=== PATIENT | female | born 1935 | race Caucasian/White ===

== ENCOUNTER → 2016-12-25 | Outpatient (CLI) | payer OTHER ==
[~2016-12-25] MED LIST: LEVOTHYROXINE 0.1 MG PO; LISINOPRIL5 MG PO; PREMARIN0.625 MG PO
[2016-12-25 12:51] VITALS: BP 112/74
== END ==
LOC: OPONC 08:08
DX: D80.1 Nonfamilial hypogammaglobulinemia (principal); D84.9 Immunodeficiency, unspecified
CPT/HCPCS: 95000; 95001

== ENCOUNTER → 2017-01-25 | Outpatient (CLI) | payer OTHER ==
[2017-01-25 14:36] VITALS: BP 133/55
== END ==
LOC: OPONC 07:57
DX: D80.1 Nonfamilial hypogammaglobulinemia (principal)
CPT/HCPCS: 95000; 95001

== ENCOUNTER → 2017-02-24 | Outpatient (CLI) | payer OTHER ==
[2017-02-24 10:44] VITALS: BP 133/44
== END ==
LOC: OPONC 02-22 13:44
DX: D80.1 Nonfamilial hypogammaglobulinemia (principal)
CPT/HCPCS: 95000; 95001

== ENCOUNTER → 2017-03-24 | Outpatient (CLI) | payer OTHER ==
[2017-03-24 15:53] VITALS: BP 140/80
== END ==
LOC: OPONC 03-23 00:59
DX: D80.1 Nonfamilial hypogammaglobulinemia (principal); D84.9 Immunodeficiency, unspecified
CPT/HCPCS: 95000; 95001

== ENCOUNTER → 2017-04-21 | Outpatient (CLI) | payer OTHER ==
[2017-04-21 10:00] VITALS: BP 155/54
== END ==
LOC: OPONC 04-20 06:49
DX: D80.1 Nonfamilial hypogammaglobulinemia (principal); D84.9 Immunodeficiency, unspecified
CPT/HCPCS: 95000; 95001

== ENCOUNTER → 2017-05-25 | Outpatient (CLI) | payer OTHER ==
[2017-05-25 17:12] VITALS: BP 154/56
== END ==
LOC: OPONC 06:28
DX: D84.9 Immunodeficiency, unspecified (principal); D80.1 Nonfamilial hypogammaglobulinemia
CPT/HCPCS: 95000; 95001

== ENCOUNTER → 2017-06-21 | Outpatient (CLI) | payer OTHER ==
[~2017-06-21] MED LIST changes: +PRIVIGEN50 ML IV
[2017-06-21 10:15] VITALS: BP 139/51
== END ==
LOC: OPONC 00:44
DX: D84.9 Immunodeficiency, unspecified (principal); D80.1 Nonfamilial hypogammaglobulinemia
CPT/HCPCS: 95000; 95001

== ENCOUNTER → 2017-07-19 | Outpatient (CLI) | payer OTHER ==
[2017-07-19 09:45] VITALS: BP 102/37
[2017-07-19 13:15] VITALS: BP 151/52
== END ==
LOC: OPONC 00:32
DX: D84.9 Immunodeficiency, unspecified (principal); D80.1 Nonfamilial hypogammaglobulinemia
CPT/HCPCS: 95000; 95001

== ENCOUNTER → 2017-08-17 | Outpatient (CLI) | payer OTHER ==
[2017-08-17 09:50] VITALS: BP 139/44
== END ==
LOC: OPONC 08-16 00:44
DX: D80.1 Nonfamilial hypogammaglobulinemia (principal); D84.9 Immunodeficiency, unspecified
CPT/HCPCS: 95000; 95001

== ENCOUNTER → 2017-09-22 | Outpatient (CLI) | payer OTHER ==
[2017-09-22 12:01] VITALS: BP 151/37
== END ==
LOC: OPONC 09-13 00:20
DX: D84.9 Immunodeficiency, unspecified (principal); D80.1 Nonfamilial hypogammaglobulinemia
CPT/HCPCS: 95000; 95001

== ENCOUNTER → 2017-10-21 | Outpatient (CLI) | payer OTHER ==
[2017-10-21 10:50] VITALS: BP 121/47
== END ==
LOC: OPONC 00:19
DX: D84.9 Immunodeficiency, unspecified (principal); D80.1 Nonfamilial hypogammaglobulinemia
CPT/HCPCS: 95000; 95001

== ENCOUNTER → 2017-11-15 | Outpatient (CLI) | payer OTHER ==
[2017-11-15 13:33] VITALS: BP 124/55
== END ==
LOC: OPONC 01:28
DX: D80.1 Nonfamilial hypogammaglobulinemia (principal); D84.9 Immunodeficiency, unspecified
CPT/HCPCS: 95000; 95001